=== PATIENT | female | born 1990 | race Hispanic/Latino ===

== ENCOUNTER 2021-10-11 18:14 | Emergency (ER) | payer OTHER ==
--- OUTSIDE RECORDS SUMMARY | 2021-10-11 18:17 | XMS REPORT | Continuity of Care Document ---
:1990 Author Organization [facility] Address [address] [place] [address] Care Team Providers Name Role Phone NATASHA Attending Clinician Unavailable Robinson_Katrin Attending Clinician Unavailable NATASHA Admitting Clinician Unavailable Robinson_Katrin Admitting Clinician Unavailable Payers Payer Name Policy Type Policy Number Effective Date Expiration Date Perry TOMAS (POS) [id number] 2014 00:00:00 Problems Condition Condition Condition Status Onset Resolution Last Treating Co mments Source Name Details Category Date Date Treatment Clinician Date Primigravi Primigravi Problem Active M [facility] da da 6-14 da 00:00: Medical 00 Group Allergies, Adverse Reactions, Alerts This patient has no known allergies or adverse reactions. Social History Smoking Status Start Date Stop Date Source Never Smoker [facility] Medications Ordered Filled Start Stop Current Ordering Indication Dosage Frequency Signature Comments Components Source Medication Medication Date Date Medication? Clinician (SIG) Name Name No [facility] one tablet one tablet one tablet da daily daily daily [facility] Vital Signs Vital Name Observation Time Observation Value Comments Source BP Diastolic 2019-03-17 00:00:00 79 mm[Hg] [facility] Height 2019-03-17 00:00:00 62 [in_i] [facility] BMI (Body Mass 2019-03-17 00:00:00 28.3 kg/m2 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 BP Systolic 2019-03-17 00:00:00 112 mm[Hg] [facility] Body Weight 2019-03-17 00:00:00 154.8 [lb_av] [facility] BP Systolic 2019-02-22 00:00:00 113 mm[Hg] [facility] Body Weight 2019-02-22 00:00:00 175.2 [lb_av] [facility] BP Diastolic 2019-02-22 00:00:00 77 mm[Hg] [facility] Height 2019-02-22 00:00:00 62 [in_i] [facility] BMI (Body Mass 2019-02-22 00:00:00 32 kg/m2 [facility] Medical Index) Group BP Diastolic 2019-02-15 00:00:00 86 mm[Hg] [facility] Height 2019-02-15 00:00:00 62 [in_i] [facility] BMI (Body Mass 2019-02-15 00:00:00 31.6 kg/m2 [facility] Medical Index) Group BP Systolic 2019-02-15 00:00:00 126 mm[Hg] [facility] Body Weight 2019-02-15 00:00:00 172.5 [lb_av] [facility] BP Diastolic 2019-02-08 00:00:00 82 mm[Hg] [facility] Height 2019-02-08 00:00:00 62 [in_i] [facility] BP Systolic 2019-02-08 00:00:00 120 mm[Hg] [facility] Body Weight 2019-02-08 00:00:00 172.8 [lb_av] [facility] BP Diastolic 2019-02-01 00:00:00 75 mm[Hg] [facility] Height 2019-02-01 00:00:00 62 [in_i] [facility] BMI (Body Mass 2019-02-01 00:00:00 31.5 kg/m2 [facility] Medical Index) Group BP Systolic 2019-02-01 00:00:00 107 mm[Hg] [facility] Body Weight 2019-02-01 00:00:00 172.1 [lb_av] [facility] BP Diastolic 2019-01-18 00:00:00 77 mm[Hg] [facility] Height 2019-01-18 00:00:00 62 [in_i] [facility] BMI (Body Mass 2019-01-18 00:00:00 30.6 kg/m2 [facility] 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) Group BP Systolic 2019-01-18 00:00:00 123 mm[Hg] [facility] Body Weight 2019-01-18 00:00:00 167.3 [lb_av] [facility] BP Diastolic 2019-01-04 00:00:00 77 mm[Hg] [facility] Height 2019-01-04 00:00:00 62 [in_i] [facility] BMI (Body Mass 2019-01-04 00:00:00 30.4 kg/m2 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) Group BP Systolic 2019-01-04 00:00:00 123 mm[Hg] [facility] Body Weight 2019-01-04 00:00:00 166.3 [lb_av] [facility] BP Diastolic 2018-12-21 00:00:00 72 mm[Hg] [facility] Height 2018-12-21 00:00:00 62 [in_i] [facility] BMI (Body Mass 2018-12-21 00:00:00 29.9 kg/m2 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) Group BP Systolic 2018-12-21 00:00:00 113 mm[Hg] [facility] Body Weight 2018-12-21 00:00:00 163.6 [lb_av] [facility] BP Diastolic 2018-12-07 00:00:00 76 mm[Hg] [facility] Height 2018-12-07 00:00:00 62 [in_i] [facility] BMI (Body Mass 2018-12-07 00:00:00 29.5 kg/m2 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) Group BP Systolic 2018-12-07 00:00:00 113 mm[Hg] [facility] Body Weight 2018-12-07 00:00:00 161.1 [lb_av] [facility] BP Diastolic 2018-11-09 00:00:00 85 mm[Hg] [facility] Height 2018-11-09 00:00:00 62 [in_i] [facility] BMI (Body Mass 2018-11-09 00:00:00 29 kg/m2 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 BP Systolic 2018-11-09 00:00:00 124 mm[Hg] [facility] Body Weight 2018-11-09 00:00:00 158.3 [lb_av] [facility] BP Diastolic 2018-11-05 00:00:00 79 mm[Hg] [facility] Height 2018-11-05 00:00:00 62 [in_i] [facility] (Body Mass 2018-11-05 00:00:00 28.4 kg/m2 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 BP Systolic 2018-11-05 00:00:00 114 mm[Hg] [facility] Body Weight 2018-11-05 00:00:00 155.2 [lb_av] [facility] Procedures Procedure Date / Time Performed Performing Clinician [facility] US, obstetric, limited 2019-02-01 00:00:00 [facility] US, obstetric, limited 2019-01-04 00:00:00 [facility] ULTRASOUND REPEAT 2018-12-07 00:00:00 [facility] US, obstetric, limited 2018-11-09 00:00:00 [facility] Plan of Care Planned Activity Planned Date Details Comments Source Diagnostic Test 2019-03-17 urinalysis, Azar hognaal Pending 00:00:00 dipstick [code = Group urinalysis, dipstick] Encounters Start End Encounter Admission Attending Care Care Encounter Source Date/Time Date/Time Type Type Clinicians Facility Department ID 2021-09-17 2021-09-17 Outpatient LISTER_MELI RONI TAMAYO [id number] [facility] 04:02:00 04:02:00 [facility] [id number] da [facility] 2020-04-11 2020-04-11 Outpatient G_Katrin [facility] [id number] [facility] 02:47:00 02:47:00 [id number] da Medical Group 2019-03-17 2019-03-17 Margarito YLNNG [place] - [id number] [facility] 00:00:00 00:00:00 Discovery sheldon Wilkes MD: [address] [facility] [address], [place] [address] , Ph. [phone] 2019-02-22 2019-02-22 Margarito LYNN [place] - [id number] [facility] 00:00:00 00:00:00 Discovery sheldon Wilkes MD: [address] [place] [phone] , Ph. [phone] 2019-02-15 2019-02-15 Margarito MADRID [place] - [id number] M [facility] 00:00:00 00:00:00 Discovery sheldon Wilkes MD: [address] [place] [phone] , Ph. [phone] 2019-02-08 2019-02-08 Margarito MADRID [place] - [id number] M [facility] 00:00:00 00:00:00 Discovery sheldon Wilkes MD: [address] [place] [phone] , Ph. [phone] 2019-02-01 2019-02-01 Orquidea MADRID [place] - [id number] M [facility] 00:00:00 00:00:00 [facility] MD: [address] [place] [phone] , Ph. [phone] 2019-01-18 2019-01-18 Margarito LYNN [place] - [id number] M [facility] 00:00:00 00:00:00 Discovery sheldon Wilkes MD: [address] [place] [phone] , Ph. [phone] 2019-01-04 2019-01-04 Candace Pimentel [facility] [place] - [id number] [facility] 00:00:00 00:00:00 Discovery sheldon Ro WHNP: [facility] [address] [address] , Ph. [phone] 2018-12-21 2018-12-21 Orquidea [place]ADRID [place] - [id number] M [facility] 00:00:00 00:00:00 Shamika Alanis Medicdwight patel MD: [address] [place] [phone] , Ph. [phone] 2018-12-07 2018-12-07 Orquidea [facility] [place] - [id number] [facility] 00:00:00 00:00:00 Shamika Alanis MD: [address] [place] [phone] , Ph. [phone] 2018-11-09 2018-11-09 Candace Pimentel [facility] [place] - [id number] [facility] 00:00:00 00:00:00 Discovery Trista Ro: [address] [place] [phone] , Ph. [phone] 2018-11-05 2018-11-05 Orquidea [facility] [place] - [id number] [facility] 00:00:00 00:00:00 Shamika Alanis MD: [address] [place] [address] , Ph. [phone] Results Test Description Test Time Test Comments Results Result Comments Source CBC W Auto Differential panel - Blood 2019-02-24 00:00:00 Test Item Value Reference Range Interpretation Comme nts white blood count (test code = white blood count) 13.6 K/uL 4.0- 11.5 red blood count (test code = red blood count) 3.36 M/uL 3.80-5.2 0 L hemoglobin (test code = hemoglobin) 10.7 g/dL 10.5-15.7 hematocrit (test code = hematocrit) 32.7 % 34.0-50.0 L Erythrocyte mean corpuscular volume [Entitic volume] (test 97.3 fL 86-100 code = 20361-5) mean corpuscular hemoglobin (test code = mean corpuscular 31.8 pg 26.2-33.4 hemoglobin) mean corpuscular HGB conc (test code = mean corpuscular HGB 32.7 g/ dL 30-34 conc) red cell distribution width (test code = red cell 13.2 % 12.0 -15.5 distribution width) platelet count (test code = platelet count) 250 K/uL 165-450 mean platelet volume (test code = mean platelet volume) 9.6 fL 9.4-12.6 Neutrophils.segmented/100 leukocytes in Blood (test code = 75.0 % 44.4-80.1 55042-7) Granulocytes Immature [#/volume] in Blood (test code = 0.1 K/uL 0.0-0.03 H 13339-6) lymphocyte% (test code = lymphocyte%) 15.2 % 10.0-50.0 mono % (test code = mono %) 9.1 % 3.6-12.0 eos % (test code = eos %) 0 % 0.0-5.4 Basophils/100 leukocytes in Unspecified specimen (test code 0.1 % 0.1-1.2 = 69259-9) Neutrophils.band form [#/volume] in Blood (test code = 10.23 K/uL 1.56-6.13 H 15850-7) Lymphocytes [#/volume] in Unspecified specimen by Automated 2.1 K/u L 1.18-3.74 count (test code = 96042-9) mono # (test code = mono #) 1.24 K/uL 0.24-0.86 H eos # (test code = eos #) 0.00 K/uL 0.04-0.36 L basophil # (test code = basophil #) 0.01 K/uL 0.01-0.08 NRBC% (test code = NRBC%) 0 /100 WBC 0-0.2 NRBC# (test code = NRBC#) 0 K/uL [facility] - [id number] 00:00:00 Test Item Value Reference Range Interpretation Comments Color of Urine by Auto (test code = colorless 18363-5) Appearance of Urine (test code = clear clear 5767-9) Glucose [Presence] in Urine by negative negative Automated test strip (test code = 30834-4) Bilirubin.total [Mass/volume] in negative negative Urine (test code = 1978-) Ketones [Mass/volume] in Urine by negative negative Automated test strip (test code = 05754-3) Specific gravity of Urine by 1.006 1.003-1.030 Automated test strip (test code = 53757-5) blood urine (test code = blood negative negative urine) pH of Urine (test code = 2756-5) 7.000 5-9 protein urine (UA) (test code = negative negative protein urine (UA)) Urobilinogen [Presence] in Urine normal 0.2-1.0 (test code = 26796-1) Nitrite [Presence] in Urine by Test negative negative strip (test code = 5802-4) Leukocyte esterase [Presence] in negative negative Urine by Automated test strip (test code = 46723-5) Erythrocytes [#/volume] in Urine by =1-5 0-5 Automated count (test code = 798-9) Leukocytes [#/area] in Urine =1-5 0-5 sediment by Automated count (test code = 40432-2) Epithelial cells [Presence] in =1-5 0-5 Urine sediment by Light microscopy (test code = 80204-1) Bacteria identified in Urine by trace none detect Culture (test code = 630-4) Casts [#/area] in Urine sediment by =2-5 none detect Automated count (test code = 24975-5) urine culture added? (test code = no urine culture added?) [facility]-Iwqpzelxzxgnv.placental [Presence] in Vaginal [id number] 00:00:00 Test Item Value Reference Range Interpretation Comments Sjkfb-9-Wmnacyfbgxzww.placental positive neg [Presence] in Vaginal fluid (test code = 24392-1) [facility] W Auto Differential panel - [id number] 00:00:00 Test Item Value Reference Range Interpretation Comments white blood count (test code = 8.8 K/uL 4.0-11.5 white blood count) red blood count (test code = red 4.06 M/uL 3.80-5.20 blood count) hemoglobin (test code = 12.9 g/dL 10.5-15.7 hemoglobin) hematocrit (test code = 38.5 % 34.0-50.0 hematocrit) Erythrocyte mean corpuscular 94.8 fL 86-100 volume [Entitic volume] (test code = 37439-3) mean corpuscular hemoglobin (test 31.8 pg 26.2-33.4 code = mean corpuscular hemoglobin) mean corpuscular HGB conc (test 33.5 g/dL 30-34 code = mean corpuscular HGB conc) red cell distribution width (test 13.0 % 12.0-15.5 code = red cell distribution width) platelet count (test code = 277 K/uL 165-450 platelet count) mean platelet volume (test code = 9.8 fL 9.4-12.6 mean platelet volume) Neutrophils.segmented/100 65.7 % 44.4-80.1 leukocytes in Blood (test code = 44367-0) Granulocytes Immature [#/volume] 0.0 K/uL 0.0-0.03 in Blood (test code = 17939-7) lymphocyte% (test code = 25.6 % 10.0-50.0 lymphocyte%) mono % (test code = mono %) 7.9 % 3.6-12.0 eos % (test code = eos %) 0.3 % 0.0-5.4 Basophils/100 leukocytes in 0.2 % 0.1-1.2 Unspecified specimen (test code = 35345-0) Neutrophils.band form [#/volume] 5.75 K/uL 1.56-6.13 in Blood (test code = 96122-1) Lymphocytes [#/volume] in 2.2 K/uL 1.18-3.74 Unspecified specimen by Automated count (test code = 92294-1) mono # (test code = mono #) 0.69 K/uL 0.24-0.86 eos # (test code = eos #) 0.03 K/uL 0.04-0.36 L basophil # (test code = basophil 0.02 K/uL 0.01-0.08 #) NRBC% (test code = NRBC%) 0 /100 WBC 0-0.2 NRBC# (test code = NRBC#) 0 K/uL [facility] [Presence] in Serum by [id number] 00:00:00 Test Item Value Reference Range Interpretation Comments Reagin Ab [Presence] in Serum by nonreactive nonreactive RPR (test code = 43807-0) [facility] Ag [Presence] in Serum 2019-02-23 00:00:00 Test Item Value Reference Range Interpretation Comments .hepatitis B surface antigen (test negative negative code = .hepatitis B surface antigen) [facility] macro (dipstick) panel - [id number] 10:07:57 Test Item Value Reference Range Interpretation Comments Leukocytes (test code = Leukocytes) Negative Nitrite (test code = Nitrite) negative Urobilinogen (test code = .2 Urobilinogen) Protein (test code = Protein) Negative pH (test code = pH) 7.0 Blood (test code = Blood) Negative Specific [place] (test code = 1.010 Specific [place]) Ketone (test code = Ketone) Negative Bilirubin (test code = Bilirubin) Negative Glucose (test code = Glucose) Negative Appearance (test code = Appearance) Clear Color (test code = Color) Yellow [facility] macro (dipstick) panel - [id number] 10:07:57 Test Item Value Reference Range Interpretation Comments Leukocytes (test code = Leukocytes) Negative Nitrite (test code = Nitrite) negative Urobilinogen (test code = .2 Urobilinogen) Protein (test code = Protein) Negative pH (test code = pH) 7.0 Blood (test code = Blood) Negative Specific [place] (test code = 1.010 Specific [place]) Ketone (test code = Ketone) Negative Bilirubin (test code = Bilirubin) Negative Glucose (test code = Glucose) Negative Appearance (test code = Appearance) Clear Color (test code = Color) Yellow [facility] macro (dipstick) panel - [id number] 10:03:05 Test Item Value Reference Range Interpretation Comments Leukocytes (test code = Negative Leukocytes) Nitrite (test code = negative Nitrite) Urobilinogen (test code = .2 Urobilinogen) Protein (test code = Negative Protein) pH (test code = pH) 7.0 Blood (test code = Blood) Non-Hemolyzed: Trace Specific [place] (test 1.015 code = Specific [place]) Ketone (test code = Negative Ketone) Bilirubin (test code = Negative Bilirubin) Glucose (test code = Negative Glucose) Appearance (test code = Clear Appearance) Color (test code = Color) Yellow [facility] macro (dipstick) panel - [id number] 10:03:05 Test Item Value Reference Range Interpretation Comments Leukocytes (test code = Negative Leukocytes) Nitrite (test code = negative Nitrite) Urobilinogen (test code = .2 Urobilinogen) Protein (test code = Negative Protein) pH (test code = pH) 7.0 Blood (test code = Blood) Non-Hemolyzed: Trace Specific [place] (test 1.015 code = Specific [place]) Ketone (test code = Negative Ketone) Bilirubin (test code = Negative Bilirubin) Glucose (test code = Negative Glucose) Appearance (test code = Clear Appearance) Color (test code = Color) Yellow [facility] (dipstick) panel - [id number] 10:03:05 Test Item Value Reference Range Interpretation Comments Leukocytes (test code = Negative Leukocytes) Nitrite (test code = negative Nitrite) Urobilinogen (test code = .2 Urobilinogen) Protein (test code = Negative Protein) pH (test code = pH) 7.0 Blood (test code = Blood) Non-Hemolyzed: Trace Specific [place] (test 1.015 code = Specific [place]) Ketone (test code = Negative Ketone) Bilirubin (test code = Negative Bilirubin) Glucose (test code = Negative Glucose) Appearance (test code = Clear Appearance) Color (test code = Color) Yellow [facility] (dipstick) panel - [id number] 09:47:00 Test Item Value Reference Range Interpretation Comments Leukocytes (test code = Negative Leukocytes) Nitrite (test code = Nitrite) negative Urobilinogen (test code = .2 Urobilinogen) Protein (test code = Protein) Negative pH (test code = pH) 7.0 Blood (test code = Blood) Negative Specific [place] (test code = 1.010 Specific [place]) Ketone (test code = Ketone) Negative Bilirubin (test code = Bilirubin) Negative Glucose (test code = Glucose) Negative Appearance (test code = Clear Appearance) Color (test code = Color) Pale Yellow [facility] (dipstick) panel - [id number] 09:47:00 Test Item Value Reference Range Interpretation Comments Leukocytes (test code = Negative Leukocytes) Nitrite (test code = Nitrite) negative Urobilinogen (test code = .2 Urobilinogen) Protein (test code = Protein) Negative pH (test code = pH) 7.0 Blood (test code = Blood) Negative Specific [place] (test code = 1.010 Specific [place]) Ketone (test code = Ketone) Negative Bilirubin (test code = Bilirubin) Negative Glucose (test code = Glucose) Negative Appearance (test code = Clear Appearance) Color (test code = Color) Pale Yellow [facility]) panel - [id number] 09:47:00 Test Item Value Reference Range Interpretation Comments Leukocytes (test code = Negative Leukocytes) Nitrite (test code = Nitrite) negative Urobilinogen (test code = .2 Urobilinogen) Protein (test code = Protein) Negative pH (test code = pH) 7.0 Blood (test code = Blood) Negative Specific [place] (test code = 1.010 Specific [place]) Ketone (test code = Ketone) Negative Bilirubin (test code = Bilirubin) Negative Glucose (test code = Glucose) Negative Appearance (test code = Clear Appearance) Color (test code = Color) Pale Yellow [facility] (dipstick) panel - [id number] 11:16:00 Test Item Value Reference Range Interpretation Comments Leukocytes (test code = Negative Leukocytes) Nitrite (test code = Nitrite) negative Urobilinogen (test code = .2 Urobilinogen) Protein (test code = Protein) Negative pH (test code = pH) 7.0 Blood (test code = Blood) Negative Specific [place] (test code = 1.015 Specific [place]) Ketone (test code = Ketone) Negative Bilirubin (test code = Bilirubin) Negative Glucose (test code = Glucose) Negative Appearance (test code = Clear Appearance) Color (test code = Color) Pale Yellow [facility] (dipstick) panel - [id number] 11:16:00 Test Item Value Reference Range Interpretation Comments Leukocytes (test code = Negative Leukocytes) Nitrite (test code = Nitrite) negative Urobilinogen (test code = .2 Urobilinogen) Protein (test code = Protein) Negative pH (test code = pH) 7.0 Blood (test code = Blood) Negative Specific [place] (test code = 1.015 Specific [place]) Ketone (test code = Ketone) Negative Bilirubin (test code = Bilirubin) Negative Glucose (test code = Glucose) Negative Appearance (test code = Clear Appearance) Color (test code = Color) Pale Yellow [facility] macro (dipstick) panel - [id number] 11:16:00 Test Item Value Reference Range Interpretation Comments Leukocytes (test code = Negative Leukocytes) Nitrite (test code = Nitrite) negative Urobilinogen (test code = .2 Urobilinogen) Protein (test code = Protein) Negative pH (test code = pH) 7.0 Blood (test code = Blood) Negative Specific [place] (test code = 1.015 Specific [place]) Ketone (test code = Ketone) Negative Bilirubin (test code = Bilirubin) Negative Glucose (test code = Glucose) Negative Appearance (test code = Clear Appearance) Color (test code = Color) Pale Yellow [facility] GroupStreptococcus pyogenes [Presence] in Throat by Organism specific [id number] 00:00:00 Test Item Value Reference Range Interpretation Comments Streptococcus pyogenes [Presence] in negative Throat by Organism specific culture (test code = 78343-6) [facility] GroupStreptococcus pyogenes [Presence] in Throat by Organism specific [id number] 00:00:00 Test Item Value Reference Range Interpretation Comments Streptococcus pyogenes [Presence] in negative Throat by Organism specific culture (test code = 03498-7) [facility] GroupStreptococcus pyogenes [Presence] in Throat by Organism specific [id number] 00:00:00 Test Item Value Reference Range Interpretation Comments Streptococcus pyogenes [Presence] in negative Throat by Organism specific culture (test code = 92370-4) [facility] blood [id number] 11:04:00 Test Item Value Reference Range Interpretation Comments [facility]) [facility] blood [id number] 11:04:00 Test Item Value Reference Range Interpretation Comments [facility] blood [facility] (test code = [facility] blood collection) [facility] blood [id number] 11:04:00 Test Item Value Reference Range Interpretation Comments [facility]) [facility] blood [id number] 11:04:00 Test Item Value Reference Range Interpretation Comments [facility]) [facility] (dipstick) panel - [id number] 10:36:28 Test Item Value Reference Range Interpretation Comments Leukocytes (test code = Leukocytes) Trace Nitrite (test code = Nitrite) negative Urobilinogen (test code = .2 Urobilinogen) Protein (test code = Protein) Negative pH (test code = pH) 7.0 Blood (test code = Blood) Negative Specific [place] (test code = 1.015 Specific [place]) Ketone (test code = Ketone) Negative Bilirubin (test code = Bilirubin) Negative Glucose (test code = Glucose) Negative Appearance (test code = Appearance) Clear Color (test code = Color) Yellow [facility] macro (dipstick) panel - [id number] 10:36:28 Test Item Value Reference Range Interpretation Comments Leukocytes (test code = Leukocytes) Trace Nitrite (test code = Nitrite) negative Urobilinogen (test code = .2 Urobilinogen) Protein (test code = Protein) Negative pH (test code = pH) 7.0 Blood (test code = Blood) Negative Specific [place] (test code = 1.015 Specific [place]) Ketone (test code = Ketone) Negative Bilirubin (test code = Bilirubin) Negative Glucose (test code = Glucose) Negative Appearance (test code = Appearance) Clear Color (test code = Color) Yellow [facility] panel - [id number] 10:36:28 Test Item Value Reference Range Interpretation Comments Leukocytes (test code = Leukocytes) Trace Nitrite (test code = Nitrite) negative Urobilinogen (test code = .2 Urobilinogen) Protein (test code = Protein) Negative pH (test code = pH) 7.0 Blood (test code = Blood) Negative Specific [place] (test code = 1.015 Specific [place]) Ketone (test code = Ketone) Negative Bilirubin (test code = Bilirubin) Negative Glucose (test code = Glucose) Negative Appearance (test code = Appearance) Clear Color (test code = Color) Yellow [facility] panel - [id number] 10:36:28 Test Item Value Reference Range Interpretation Comments Leukocytes (test code = Leukocytes) Trace Nitrite (test code = Nitrite) negative Urobilinogen (test code = .2 Urobilinogen) Protein (test code = Protein) Negative pH (test code = pH) 7.0 Blood (test code = Blood) Negative Specific [place] (test code = 1.015 Specific [place]) Ketone (test code = Ketone) Negative Bilirubin (test code = Bilirubin) Negative Glucose (test code = Glucose) Negative Appearance (test code = Appearance) Clear Color (test code = Color) Yellow [facility]stick) panel - [id number] 08:49:42 Test Item Value Reference Range Interpretation Comments Leukocytes (test code = Leukocytes) Negative Nitrite (test code = Nitrite) negative Urobilinogen (test code = .2 Urobilinogen) Protein (test code = Protein) Negative pH (test code = pH) 7.0 Blood (test code = Blood) Negative Specific [place] (test code = 1.015 Specific [place]) Ketone (test code = Ketone) Negative Bilirubin (test code = Bilirubin) Negative Glucose (test code = Glucose) Negative Appearance (test code = Appearance) Clear Color (test code = Color) Yellow [facility]dipstick[facility] panel - [id number] 08:49:42 Test Item Value Reference Range Interpretation Comments Leukocytes (test code = Leukocytes) Negative Nitrite (test code = Nitrite) negative Urobilinogen (test code = .2 Urobilinogen) Protein (test code = Protein) Negative pH (test code = pH) 7.0 Blood (test code = Blood) Negative Specific [place] (test code = 1.015 Specific [place]) Ketone (test code = Ketone) Negative Bilirubin (test code = Bilirubin) Negative Glucose (test code = Glucose) Negative Appearance (test code = Appearance) Clear Color (test code = Color) Yellow [facility]stick) panel - [id number] 08:49:42 Test Item Value Reference Range Interpretation Comments Leukocytes (test code = Leukocytes) Negative Nitrite (test code = Nitrite) negative Urobilinogen (test code = .2 Urobilinogen) Protein (test code = Protein) Negative pH (test code = pH) 7.0 Blood (test code = Blood) Negative Specific [place] (test code = 1.015 Specific [place]) Ketone (test code = Ketone) Negative Bilirubin (test code = Bilirubin) Negative Glucose (test code = Glucose) Negative Appearance (test code = Appearance) Clear Color (test code = Color) Yellow [facility] (dipstick) panel - [id number] 09:09:00 Test Item Value Reference Range Interpretation Comments Leukocytes (test code = Negative Leukocytes) Nitrite (test code = Nitrite) negative Urobilinogen (test code = .2 Urobilinogen) Protein (test code = Protein) Negative pH (test code = pH) 7.0 Blood (test code = Blood) Negative Specific [place] (test code = 1.015 Specific [place]) Ketone (test code = Ketone) Negative Bilirubin (test code = Bilirubin) Negative Glucose (test code = Glucose) Negative Appearance (test code = Clear Appearance) Color (test code = Color) Pale Yellow [facility] ([facility]stick) panel - [id number] 09:09:00 Test Item Value Reference Range Interpretation Comments Leukocytes (test code = Negative Leukocytes) Nitrite (test code = Nitrite) negative Urobilinogen (test code = .2 Urobilinogen) Protein (test code = Protein) Negative pH (test code = pH) 7.0 Blood (test code = Blood) Negative Specific [place] (test code = 1.015 Specific [place]) Ketone (test code = Ketone) Negative Bilirubin (test code = Bilirubin) Negative Glucose (test code = Glucose) Negative Appearance (test code = Clear Appearance) Color (test code = Color) Pale Yellow [facility] CenterGlucose [Mass/volume] in Serum or Plasma --1 hour post 50 g glucose [id number] 00:00:00 Test Item Value Reference Range Interpretation Comments Glucose [Mass/volume] in Serum or 128 mg/dL 65-139 Plasma --1 hour post 50 g glucose PO (test code = 1504-0) [facility] [[facility]/volume] in Serum or Plasma --1 hour post 50 g glucose [id number] 00:00:00 Test Item Value Reference Range Interpretation Comments Glucose [Mass/volume] in Serum or 128 mg/dL 65-139 Plasma --1 hour post 50 g glucose PO (test code = 1504-0) [facility] CenterHIV [facility]2 Ab+HIV1 p24 Ag [Presence] in Serum by Immunoassay 2018-12-09 00:00:00 Test Item Value Reference Range Interpretation Comments HIV 1+2 Ab+HIV1 p24 Ag [Presence] in tnp Serum by Immunoassay (test code = 12931-0) [facility] Centerrequest [id number] 00:00:00 Test Item Value Reference Range Interpretation Comments request problem (test code = request tnp problem) [facility] Ab+HIV1 p24 Ag [Presence] in Serum by Immunoassay 2018-12-09 00:00:00 Test Item Value Reference Range Interpretation Comments HIV 1+2 Ab+HIV1 p24 Ag [Presence] in tnp Serum by Immunoassay (test code = 48688-8) [facility] [id number] 00:00:00 Test Item Value Reference Range Interpretation Comments request problem (test code = request tnp problem) [facility] Centerwritten [id number] 00:00:00 Test Item Value Reference Range Interpretation Comments written authorization (test code = comment written authorization) [facility] Centerwritten [id number] 00:00:00 Test Item Value Reference Range Interpretation Comments written authorization (test code = comment written authorization) [facility] (dipstick) panel - [id number] 09:44:00 Test Item Value Reference Range Interpretation Comments Leukocytes (test code = Leukocytes) Negative Nitrite (test code = Nitrite) negative Urobilinogen (test code = .2 Urobilinogen) Protein (test code = Protein) Negative pH (test code = pH) 6.0 Blood (test code = Blood) Negative Specific [place] (test code = 1.025 Specific [place]) Ketone (test code = Ketone) Trace Bilirubin (test code = Bilirubin) Negative Glucose (test code = Glucose) Negative Appearance (test code = Appearance) Clear Color (test code = Color) Yellow [facility] CenterUr[facility] macro (dipstick) panel - [id number] 09:44:00 Test Item Value Reference Range Interpretation Comments Leukocytes (test code = Leukocytes) Negative Nitrite (test code = Nitrite) negative Urobilinogen (test code = .2 Urobilinogen) Protein (test code = Protein) Negative pH (test code = pH) 6.0 Blood (test code = Blood) Negative Specific [place] (test code = 1.025 Specific [place]) Ketone (test code = Ketone) Trace Bilirubin (test code = Bilirubin) Negative Glucose (test code = Glucose) Negative Appearance (test code = Appearance) Clear Color (test code = Color) Yellow [facility] blood [id number] 06:49:00 Test Item Value Reference Range Interpretation Comments [facility]) [facility] blood [id number] 06:49:00 Test Item Value Reference Range Interpretation Comments [facility] blood collection sent to [facility] (test code = [facility] blood collection) [facility] (dipstick) panel - [id number] 10:05:34 Test Item Value Reference Range Interpretation Comments Leukocytes (test code = Leukocytes) Negative Nitrite (test code = Nitrite) negative Urobilinogen (test code = .2 Urobilinogen) Protein (test code = Protein) Negative pH (test code = pH) 7.0 Blood (test code = Blood) Negative Specific [place] (test code = 1.010 Specific [place]) Ketone (test code = Ketone) Negative Bilirubin (test code = Bilirubin) Negative Glucose (test code = Glucose) Negative Appearance (test code = Appearance) Clear Color (test code = Color) Yellow [facility] Center[facility] macro (dipstick) panel - [id number] 10:05:34 Test Item Value Reference Range Interpretation Comments Leukocytes (test code = Leukocytes) Negative Nitrite (test code = Nitrite) negative Urobilinogen (test code = .2 Urobilinogen) Protein (test code = Protein) Negative pH (test code = pH) 7.0 Blood (test code = Blood) Negative Specific [place] (test code = 1.010 Specific [place]) Ketone (test code = Ketone) Negative Bilirubin (test code = Bilirubin) Negative Glucose (test code = Glucose) Negative Appearance (test code = Appearance) Clear Color (test code = Color) Yellow [facility] CenterUr[facility] macro (dipstick) panel - [id number] 10:53:00 Test Item Value Reference Range Interpretation Comments Leukocytes (test code = Negative Leukocytes) Nitrite (test code = Nitrite) negative Urobilinogen (test code = .2 Urobilinogen) Protein (test code = Protein) Negative pH (test code = pH) 7.0 Blood (test code = Blood) Negative Specific [place] (test code = 1.010 Specific [place]) Ketone (test code = Ketone) Negative Bilirubin (test code = Bilirubin) Negative Glucose (test code = Glucose) Negative Appearance (test code = Clear Appearance) Color (test code = Color) Pale Yellow [facility]
[2021-10-11 19:16] LABS: Urine Blood 3+ (Negative); Urine Glucose Negative (Negative); Urine Protein Negative (Negative); Urine pH 6.5 (5.0-7.0)
[2021-10-11 19:33] LABS: Absolute Lymphocytes (CBC) 3.2 K/uL (0.7-4.9); Hematocrit 38.7 % (36.0-45.0); Lymphocytes % 59.4 % (15.3-44.8); MPV 7.5 fL (7.6-11.3); RBC Red Blood Cell Count 4.04 M/uL (3.86-4.86)
[2021-10-11 19:38] LABS: Urine Bacteria <20 /HPF (<20)
[2021-10-11 19:48] LABS: BUN Blood Urea Nitrogen 10 mg/dL (7-18); Bicarbonate 27 mmol/L (21-32); Glomerular Filtration Rate 108 ml/min (=/>90); Glucose Level 88 mg/dL (74-106); Potassium 3.5 mmol/L (3.5-5.1); Sodium Level 139 mmol/L (136-145)
[2021-10-11 19:57] LABS: HCG, Quantitative < 1 mIU/mL (1-3)
[2021-10-11 19:59] LABS: Urine Blood 1+ (Negative); Urine Glucose Negative (Negative); Urine Protein Negative (Negative); Urine Specific Gravity 1.015 (1.005-1.030)
--- NOTE | 2021-10-11 23:24 | ER ---
Nurse's Notes [facility] Name: Eladia Urrutia Age: 31 yrs Sex: Female : 1990 Arrival Date: 10/11/2021 Time: 18:16 Bed 16 Private MD: Diagnosis: Abnormal uterine and vaginal bleeding, unspecified Presentation: 10/11 19:11 Chief complaint: Patient states: "I started my period on Thursday. All day I have been tw5 bleeding really heavily and passing blood clots. No pain. It just started bleeding heavier today.". Coronavirus screen: Vaccine status: Patient reports being unvaccinated. Ebola Screen: Patient negative for fever greater than or equal to 101.5 degrees Fahrenheit, and additional compatible Ebola Virus Disease symptoms Patient denies exposure to infectious person. Patient denies travel to an Ebola-affected area in the 21 days before illness onset. Initial Sepsis Screen: Does the patient meet any 2 criteria? No. Patient's initial sepsis screen is negative. Does the patient have a suspected source of infection? No. Patient's initial sepsis screen is negative. Risk Assessment: Do you want to hurt yourself or someone else? Patient reports no desire to harm self or others. Onset of symptoms was October 10, 2021. 19:11 Method Of Arrival: Ambulatory tw5 19:11 Acuity: HIRAM 3 tw5 Triage Assessment: 19:18 General: Appears in no apparent distress. Behavior is calm, cooperative, appropriate tw5 for age. Pain: Denies pain. : Reports vaginal bleeding that is bright red, with clots, heavy flow. 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 - Social history:: Smoking status: Patient denies any tobacco usage or history of. Screenin:00 Abuse screen: Denies threats or abuse. Denies injuries from another. Nutritional luda screening: No deficits noted. Tuberculosis screening: No symptoms or risk factors identified. Fall Risk None identified. Assessment: 22:55 Reassessment: Patient appears in no apparent distress at this time. No changes from luda previously documented assessment. The pt was brought to room #16 at approximately 2000. 23:18 Reassessment: The provider is speaking to the pt and informing her that there is not an luda tennille Dominguez and given that it is not a heavy flow of bleeding, she can follow up with her provider. The pt has been in NAD, sleeping in a darkened room, under a warm blanket. Awaiting dispo. Vital Signs: 19:03 BP 136 / 96; Pulse 65; Resp 16; Temp 98.4(O); Pulse Ox 100% on R/A; Weight 61.23 kg mb7 (R); Height 5 ft. 2 in. (157.48 cm) (R); Pain 0/10; 23:25 BP 139 / 83; Pulse 62; Resp 16; Temp 98.4; Pulse Ox 100% on R/A; Pain 0/10; luda 19:03 Body Mass Index 24.69 (61.23 kg, 157.48 cm) mb7 ED Course: 18:16 Patient arrived in ED. mr 19:02 Patient has correct armband on for positive identification. mb7 19:09 Joseph Jon PA is PHCP. cp 19:09 Jonh Thomas MD is Attending Physician. cp 19:13 Triage completed. tw5 19:18 Arm band placed on. Urine obtained. Urine : negative. Labs ordered per tw5 protocol. Drawn by ED staff. 19:19 Awaiting lab results. tw5 19:19 Patient notified of wait time. tw5 19:19 Initial lab(s) drawn, by ED staff, sent to lab. Inserted saline lock: 20 gauge in right tw5 Blood collected. by [employer]. 19:20 Basic Metabolic Panel Sent. tw5 19:20 CBC with Diff Sent. tw5 19:20 Quantitative Hcg Sent. tw5 19:20 Urine Microscopic Only Sent. tw5 22:49 Joseph Chavez MD is Attending Physician. cp 22:54 Anum Cormier, SARAH is Primary Nurse. luda 23:01 Door closed. Noise minimized. Lights dimmed. Warm blanket given. Verbal reassurance luda given. 23:22 Eva Tidwell MD is Referral Physician. cp Administered Medications: No medications were administered Outcome: 23:23 Discharge ordered by MD. pompa 23:29 Patient left the ED. luda Signatures: HastingsDaisha mr Joseph Jon PA PA cp Wood, Tiffany tw5 Daisha Huynh mb7 Anum Cormier RN RN luda Corrections: (The following items were deleted from the chart) 19:04 19:01 BP 152 / 109; Pulse 65bpm; Resp 16bpm; Pulse Ox 100%; Temp 98.4F; 61.23 kg; mb7 Height 5 ft. 2 in.; BMI: 24.6; Pain 0/10; mb7
--- NOTE | 2021-10-11 23:24 | EDPHYS ---
Physician Documentation [facility] Name: Eladia Urrutia Age: 31 yrs Sex: Female : 1990 Arrival Date: 10/11/2021 Time: 18:16 Bed 16 Private MD: ED Physician Joseph Chavez HPI: 10/11 19:30 This 31 yrs old Female presents to ER via Ambulatory with complaints of cp Vaginal Bleeding. 19:30 The patient presents with vaginal bleeding that is with clots. cp 19:30 Onset: The symptoms/episode began/occurred yesterday, and became worse today, heavier cp and with clots. 19:30 Associated signs and symptoms: Pertinent negatives: diarrhea, fever, urinary frequency, cp vomiting. Severity of symptoms: in the emergency department the symptoms are unchanged, despite home interventions. 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 - Social history:: Smoking status: Patient denies any tobacco usage or history of. ROS: 19:35 Constitutional: Negative for body aches, chills, fever, poor PO intake. cp 19:35 Cardiovascular: Negative for chest pain, edema, palpitations. cp 19:35 Respiratory: Negative for cough, shortness of breath, wheezing. 19:35 Abdomen/GI: Negative for vomiting, diarrhea, constipation. 19:35 : Positive for vaginal bleeding, Negative for urinary symptoms. 19:35 Neuro: Negative for altered mental status, dizziness, syncope, weakness. 19:35 All other systems are negative. Exam: 19:40 Constitutional: The patient appears in no acute distress, alert, awake, comfortable, cp non-toxic, well developed, well nourished. 19:40 Head/Face: Normocephalic, atraumatic. cp 19:40 Eyes: Periorbital structures: appear normal, Conjunctiva: normal, no exudate, no injection, Sclera: no appreciated abnormality, Lids and lashes: appear normal, bilaterally. 19:40 ENT: External ear(s): are unremarkable, Nose: is normal, Mouth: Lips: moist, Oral mucosa: moist, Posterior pharynx: Airway: no evidence of obstruction, patent. 19:40 Neck: ROM/movement: is normal, is supple, without pain, no range of motions limitations. 19:40 Chest/axilla: Inspection: normal. 19:40 Cardiovascular: Rate: normal, Rhythm: regular, Edema: is not appreciated, JVD: is not appreciated. 19:40 Respiratory: the patient does not display signs of respiratory distress, Respirations: normal, no use of accessory muscles, no retractions, labored breathing, is not present, Breath sounds: are clear throughout, no decreased breath sounds, no stridor, no wheezing. 19:40 Abdomen/GI: Inspection: abdomen appears normal, Bowel sounds: active, all quadrants, Palpation: abdomen is soft and non-tender, in all quadrants. 19:40 Back: pain, is absent, ROM is normal. Vital Signs: 19:03 BP 136 / 96; Pulse 65; Resp 16; Temp 98.4(O); Pulse Ox 100% on R/A; Weight 61.23 kg mb7 (R); Height 5 ft. 2 in. (157.48 cm) (R); Pain 0/10; 23:25 BP 139 / 83; Pulse 62; Resp 16; Temp 98.4; Pulse Ox 100% on R/A; Pain 0/10; luda 19:03 Body Mass Index 24.69 (61.23 kg, 157.48 cm) mb7 MDM: 21:34 Patient medically screened. cp 23:23 Data reviewed: vital signs, nurses notes, lab test result(s). cp 23:23 Differential diagnosis: Neoplasm ovarian cyst, pelvic inflammatory disease, uterine cp fibroids, urinary tract infection, vaginosis. Counseling: I had a detailed discussion with the patient and/or guardian regarding: the historical points, exam findings, and any diagnostic results supporting the discharge/admit diagnosis, lab results, the need for outpatient follow up, an OB/Gyne specialist, to return to the emergency department if symptoms worsen or persist or if there are any questions or concerns that arise at home. ED course: VSS. H/H stable and wnl. US not available. Will discharge to home for continued monitoring. 10/11 19:15 Order name: Urine Microscopic Only; Complete Time: :35 cp 10/11 21:35 Interpretation: Normal except: URBC 5-10. cp 10/11 19:15 Order name: Basic Metabolic Panel; Complete Time: 21:35 cp 10/11 19:15 Order name: CBC with Diff; Complete Time: 21:35 cp 10/11 21:35 Interpretation: Normal except: MPV 7.5; JENELLE% 31.5; LYM% 59.4; NEUT A 1.7. cp 10/11 19:15 Order name: Quantitative Hcg; Complete Time: 21:35 cp 10/11 19:16 Order name: Urine Dipstick-Ancillary; Complete Time: 21:35 EDMS 10/11 20:00 Order name: Urine Dipstick-Ancillary; Complete Time: 21:35 EDMS 10/11 19:15 Order name: Urine Dipstick-Ancillary (obtain specimen); Complete Time: 19:15 cp 10/11 19:15 Order name: Urine Test (obtain specimen); Complete Time: 19:15 cp 10/11 19:15 Order name: IV Saline Lock; Complete Time: 19:20 cp 10/11 19:15 Order name: Labs collected and sent; Complete Time: 19:20 cp 10/11 19:15 Order name: NPO; Complete Time: 19:15 cp Administered Medications: No medications were administered Disposition Summary: 10/11/21 23:23 Discharge Ordered Location: Home cp Problem: new cp Symptoms: have improved cp Condition: Stable cp Diagnosis - Abnormal uterine and vaginal bleeding, unspecified cp Followup: cp - With: Eva Tidwell MD - When: 2 - 3 days - Reason: Recheck today's complaints Discharge Instructions: - Discharge Summary Sheet cp - Dysfunctional Uterine Bleeding cp Forms: - Medication Reconciliation Form cp - Thank You Letter cp - Antibiotic Education cp - Prescription Opioid Use cp Signatures: Dispatcher [employer] EDMS Joseph Jon PA PA cp Wood, Tiffany tw5
[2021-10-11 23:34] VITALS: TEMP 98.4; O2SAT 100
[2021-10-11 23:35] VITALS: BP 139/83
== END 2021-10-11 23:29 | disposition home or self-care (01) ==
LOC: ER 18:14
DX: N93.9 Abnormal uterine and vaginal bleeding, unspecified (principal)
CPT/HCPCS: 36415; 80048; 81003; 81015; 84702; 85025; 99283